=== PATIENT | female | born 1985 | race Caucasian/White ===

== ENCOUNTER 2021-04-08 00:54 | Emergency (ER) | payer OTHER ==
[~2021-04-08 00:54] MED LIST: ACYCLOVIR400 MG PO; CLARITIN10 MG PO; DULERA 200 MCG8.8 GM NEB; FLAGYL500 MG PO; IPRAT-ALBUT 0.5-3 ML INH; LEVAQUIN750 MG PO; LOPRESSOR 25 MG25 MG PO; NORCO 10-325 T1 EACH PO; NORCO 7.5-3251 EACH PO; PREDNISONE50 MG PO; PROVENTIL HFA 61 INH INH; SINGULAIR10 MG PO; VENTOLIN HFA 66.7 GM INH; VENTOLIN/PROVE0.5 ML INH; Viscous lidocaine2% TOP; ZOFRAN4 MG PO
[2021-04-08] MEDS ORDERED: ALBUTEROL2.5 MG/3 M INH (04:01)
[2021-04-08] MEDS ORDERED: PREDNISONE 20 M20 MG GT (04:01)
[2021-04-08] MEDS ORDERED: SYMBICORT 80-10.2 GM INH (04:01)
== END 2021-04-08 04:25 | disposition home or self-care (01) ==
LOC: ER1 00:54
DX: J45.901 Unspecified asthma with (acute) exacerbation (principal); F17.210 Nicotine dependence, cigarettes, uncomplicated
CPT/HCPCS: 93005; 94640; 94664; 94760; 96374; 99284; J2930

== ENCOUNTER 2021-05-13 00:02 | Emergency (ER) | payer OTHER ==
[~2021-05-13 00:02] MED LIST changes: +ALBUTEROL2.5 MG/3 M INH; +PREDNISONE 20 M20 MG GT; +SYMBICORT 80-10.2 GM INH
[2021-05-13 02:45] LABS: HEMOGLOBIN 15.3 gm/dl (12.3-15.3); RED BLOOD COUNT 4.81 M/UL (4.00-5.10); WHITE BLOOD COUNT 14.9 K/UL (4.5-11.0)
[2021-05-13 03:07] LABS: BUN/CREATININE RATIO 16 (0-10)
[2021-05-13] MEDS ORDERED: PREDNISONE 20 M20 MG PO (05:09)
[2021-05-13] MEDS ORDERED: PROVENTIL HFA6.7 GM INH (05:32)
[2021-05-13] MEDS ORDERED: ALBUTEROL2.5 MG/3 M INH (05:32)
== END 2021-05-13 05:27 | disposition home or self-care (01) ==
LOC: ER1 00:02
PROVIDERS: Physician Assistant
DX: J45.901 Unspecified asthma with (acute) exacerbation (principal); F17.210 Nicotine dependence, cigarettes, uncomplicated; Z20.822 Contact with and (suspected) exposure to COVID-19
CPT/HCPCS: 0240U; 71045; 80053; 85025; 87081; 87880; 94664; 99284; J2930

== ENCOUNTER 2021-05-25 12:12 | Inpatient (IN) | payer OTHER ==
[~2021-05-25] VITALS: Ht 157.5 cm; Wt 73.5 kg
[~2021-05-25 12:12] MED LIST changes: +PREDNISONE 20 M20 MG PO; +PROVENTIL HFA6.7 GM INH
[2021-05-25 14:07] LABS: HEMOGLOBIN 15.6 gm/dl (12.3-15.3); RED BLOOD COUNT 4.88 M/UL (4.00-5.10); WHITE BLOOD COUNT 19.1 K/UL (4.5-11.0)
[2021-05-25 14:34] LABS: BUN/CREATININE RATIO 11 (0-10)
[2021-05-25] MEDS ORDERED: PROAIR HFA8.5 GM INH (17:08)
[2021-05-25] MEDS ORDERED: AMOXICILLIN875 MG PO (17:09)
[2021-05-26 04:27] LABS: HEMOGLOBIN 16.5 gm/dl (12.3-15.3); RED BLOOD COUNT 5.32 M/UL (4.00-5.10); WHITE BLOOD COUNT 14.2 K/UL (4.5-11.0)
[2021-05-26 07:42] LABS: BUN/CREATININE RATIO 15 (0-10)
[2021-05-26 14:10] LABS: CRYPTOCOCCUS NEOFORMANS/GATTII Not Detected (Negative); CYTOMEGALOVIRUS Not Detected (Negative); ENTEROVIRUS Not Detected (Negative); ESCHERICHIA COLI K1 Not Detected (Negative); HAEMOPHILUS INFLUENZAE Not Detected (Negative); HERPES SIMPLEX VIRUS 1 Not Detected (Negative); HUMAN HERPESVIRUS 6 Not Detected (Negative); HUMAN PARECHOVIRUS Not Detected (Negative); LISTERIA MONOCYTOGENES Not Detected (Negative); NEISERRIA MENINGITIDIS Not Detected (Negative); STREPTOCOCCUS AGALACTIAE Not Detected (Negative); STREPTOCOCCUS PNEUMONIAE Not Detected (Negative); VARICELLA ZOSTER VIRUS Not Detected (Negative)
[2021-05-26 14:25] LABS: RBC (AUTOMATED) 100 10^6 (0); WBC (AUTOMATED 742 10^3 (0-5)
[2021-05-26 14:41] LABS: GLUCOSE,CSF 50 mg/dL (50-80); TOTAL PROTEIN,CSF 156 mg/dL (20-45)
[2021-05-26 16:09] LABS: HERPES SIMPLEX VIRUS 2 DETECTED (Negative)
[2021-05-27 07:07] LABS: BUN/CREATININE RATIO 12 (0-10)
[2021-05-27 10:17] LABS: WHITE BLOOD COUNT 11.1 K/UL (4.5-11.0)
[2021-05-27 10:27] LABS: HEMOGLOBIN 14.4 gm/dl (12.3-15.3); RED BLOOD COUNT 4.51 M/UL (4.00-5.10)
[2021-05-28 05:10] LABS: CHLAMYDIA BY NAA Negative (Negative); GONOCOCCUS BY NAA Negative (Negative); TRICH VAG BY NAA Positive (Negative)
[2021-05-28 08:39] LABS: HEMOGLOBIN 14.8 gm/dl (12.3-15.3); RED BLOOD COUNT 4.79 M/UL (4.00-5.10)
[2021-05-28 09:17] LABS: BUN/CREATININE RATIO 10 (0-10)
[2021-05-29 06:56] LABS: BUN/CREATININE RATIO 9 (0-10)
[2021-05-29] MEDS ORDERED: VALACYCLOVIR1000 MG PO (12:33)
[2021-05-29] MEDS ORDERED: FLAGYL 250 MG250 MG PO (12:44)
== END 2021-05-29 13:13 | disposition home or self-care (01) | DRG 75 ==
LOC: ER1 12:12 → M/S 16:35 → CDU 16:35 → M/S 18:39
PROVIDERS: Emergency Medicine; Internal Medicine; ADMIT Internal Medicine
PROC: 009U3ZX Drainage of Spinal Canal, Percutaneous Approach, Diagnostic (ICD-10-PCS; principal; 2021-05-26)
PROC: B01B1ZZ Fluoroscopy of Spinal Cord using Low Osmolar Contrast (ICD-10-PCS; 2021-05-26)
DX: B00.3 Herpesviral meningitis (principal); N39.0 Urinary tract infection, site not specified; J45.909 Unspecified asthma, uncomplicated; F17.210 Nicotine dependence, cigarettes, uncomplicated; Z20.822 Contact with and (suspected) exposure to COVID-19; Z87.01 Personal history of pneumonia (recurrent); Z82.0 Family history of epilepsy and other diseases of the nervous system; Z82.49 Family history of ischemic heart disease and other diseases of the circulatory system; Z87.828 Personal history of other (healed) physical injury and trauma
CPT/HCPCS: 0240U; 36415; 51701; 70450; 71045; 72125; 80048; 80053; 81001; 82945; 83735; 84157; 84703; 85025; 85610; 85730; 87040; 87070; 87086; 87205; 87483; 87661; 89051; 94640; 94664; 94760; 96374; 96375; 96376; 99285; G0378; J0133; J0696; J1200; J2270; J2405; J3370; J7030; J7070